=== PATIENT | female | born 1955 | race African-American/Black ===

== ENCOUNTER 2018-09-26 14:10 | Emergency (ER) | payer MEDICAID, MEDICARE, OTHER ==
[~2018-09-26] VITALS: Ht 162.6 cm; Wt 83.0 kg
[~2018-09-26 14:10] MED LIST: ACET-3161; LISI-186 PO; PRILOSEC PO; SIMV20TA2 PO; TRAM50TA PO
[2018-09-26] MEDS ORDERED: IBUPROFEN 600MG TABLET PO STA (18:08)
[2018-09-26] MEDS ORDERED: ACETAMINOPHEN 325MG TABLET PO STA (18:08)
[2018-09-26] MEDS ORDERED: ASPIRIN 81MG TABLET PO ONE (18:15)
[2018-09-26 18:58] LABS: BASOPHILS % 1.1 % (0.0-2.0); EOSINOPHILS % 2.8 % (0.0-5.0); HEMATOCRIT. 37.8 % (36.0-48.0); HEMOGLOBIN. 12.8 g/dL (12.0-16.0); LYMPHOCYTES % 44.8 % (20.0-50.0); MEAN CORPUSCULAR HEMOGLOBIN 30.4 pg (28.0-32.0); MEAN PLATELET VOLUME 7.9 fl (7.4-10.4); MONOCYTES % 5.9 % (2.0-8.0); NEUTROPHILS % 45.4 % (40.0-76.0); PLATELET 281 x1000/uL (130-400); RED CELL DISTRIBUTION WIDTH 14.4 % (11.6-14.6)
[2018-09-26 19:06] LABS: CHLORIDE 107 mEq/L (98-107)
[2018-09-26] MEDS ORDERED: LISINOPRIL 20MG TABLET PO ONE (19:15)
[2018-09-26 20:36] VITALS: BP 166/84
== END 2018-09-26 20:38 | disposition home or self-care (01) ==
LOC: ER 14:10
DX: R05 Cough (principal); R51 Headache; I10 Essential (primary) hypertension; Z88.1 Allergy status to other antibiotic agents; Z88.0 Allergy status to penicillin; Z79.899 Other long term (current) drug therapy
CPT/HCPCS: 36415; 71045; 83880; 84484; 93005; 99284

== ENCOUNTER 2020-01-05 17:19 | Emergency (ER) | payer MEDICAID, MEDICARE ==
[~2020-01-05] VITALS: Ht 162.6 cm; Wt 91.0 kg
[2020-01-05 17:24] VITALS: BP 135/93
[2020-01-05 19:36] LABS: BASOPHILS % 1.4 % (0.0-2.0); EOSINOPHILS % 2.6 % (0.0-5.0); HEMATOCRIT. 36.7 % (36.0-48.0); HEMOGLOBIN. 12.3 g/dL (12.0-16.0); LYMPHOCYTES % 37.9 % (20.0-50.0); MEAN CORPUSCULAR HEMOGLOBIN 30.6 pg (28.0-32.0); MEAN PLATELET VOLUME 7.8 fl (7.4-10.4); MONOCYTES % 4.8 % (2.0-8.0); NEUTROPHILS % 53.3 % (40.0-76.0); PLATELET 270 x1000/uL (130-400); RED BLOOD CELL COUNT 4.03 mill/uL (4.2-5.4); RED CELL DISTRIBUTION WIDTH 14.7 % (11.6-14.6)
[2020-01-05 19:42] LABS: CHLORIDE 107 mEq/L (98-107)
[2020-01-05 19:54] LABS: CLARITY URINE CLEAR (CLEAR); COLOR URINE YELLOW (YELLOW); KETONES URINE NEGATIVE (NEGATIVE); LEUKOCYTE ESTERASE URINE NEGATIVE (NEGATIVE); NITRITE URINE NEGATIVE (NEGATIVE); OCCULT BLOOD URINE NEGATIVE (NEGATIVE); PH URINE 5.5 (4.5-8.0); PROTEIN URINE NEGATIVE (NEGATIVE); SPECIFIC GRAVITY URINE 1.014 (1.005-1.030)
[2020-01-05] MEDS ORDERED: ACETAMINOPHEN 325MG TABLET PO ONE (20:00)
== END 2020-01-05 20:11 | disposition home or self-care (01) ==
LOC: ER 17:19
DX: M25.561 Pain in right knee (principal); I10 Essential (primary) hypertension; Z88.6 Allergy status to analgesic agent; Z88.3 Allergy status to other anti-infective agents; Z88.0 Allergy status to penicillin; Z90.711 Acquired absence of uterus with remaining cervical stump
CPT/HCPCS: 36415; 73560; 80053; 81003; 85025; 99284

== ENCOUNTER 2021-05-03 17:18 | Inpatient (IN) | payer MEDICARE, OTHER ==
[~2021-05-03] VITALS: Ht 162.6 cm; Wt 88.6 kg
[2021-05-03 19:31] LABS: BASOPHILS % 0.5 % (0.0-2.0); EOSINOPHILS % 0.6 % (0.0-5.0); HEMATOCRIT. 38.9 % (36.0-48.0); HEMOGLOBIN. 12.8 g/dL (12.0-16.0); LYMPHOCYTES % 20.2 % (20.0-50.0); MEAN CORPUSCULAR HEMOGLOBIN 29.5 pg (28.0-32.0); MEAN CORPUSCULAR VOLUME 89.8 fL (81.0-99.0); MEAN PLATELET VOLUME 7.2 fl (7.4-10.4); MONOCYTES % 4.4 % (2.0-8.0); NEUTROPHILS % 74.3 % (40.0-76.0); PLATELET 326 x1000/uL (130-400); RED BLOOD CELL COUNT 4.33 mill/uL (4.2-5.4); RED CELL DISTRIBUTION WIDTH 14.9 % (11.6-14.6)
[2021-05-03 19:34] LABS: CHLORIDE 107 mEq/L (98-107)
[2021-05-03 19:38] LABS: PROTHROMBIN TIME 10.9 sec (9.6-11.0)
[2021-05-03 19:39] LABS: ETHANOL BLOOD < 10 mg/dL
[2021-05-03 19:42] LABS: LDL CHOLESTEROL 175 mg/dL (5-100)
[2021-05-03] MEDS ORDERED: ASPIRIN 325MG EC TABLET PO NR (19:45)
[2021-05-03 19:57] LABS: CLARITY URINE CLEAR (CLEAR); COLOR URINE YELLOW (YELLOW); KETONES URINE NEGATIVE (NEGATIVE); LEUKOCYTE ESTERASE URINE NEGATIVE (NEGATIVE); NITRITE URINE NEGATIVE (NEGATIVE); OCCULT BLOOD URINE NEGATIVE (NEGATIVE); PROTEIN URINE TRACE (NEGATIVE); SPECIFIC GRAVITY URINE 1.039 (1.005-1.030); UROBILINOGEN URINE 0.2 E.U./dL (0.2-1.0)
[2021-05-03 20:14] LABS: *AMPHETAMINES SCREEN URINE NEGATIVE (NEGATIVE); *BARBITURATES SCREEN URINE NEGATIVE (NEGATIVE); *BENZODIAZEPINES SCREEN URINE NEGATIVE (NEGATIVE)
[2021-05-03 20:16] LABS: *COCAINE SCREEN URINE NEGATIVE (NEGATIVE); CANNABINOID URINE SCREEN NEGATIVE (NEGATIVE); METHADONE URINE SCREEN NEGATIVE (NEGATIVE); OPIATES URINE SCREEN NEGATIVE (NEGATIVE)
[2021-05-03 20:17] LABS: PHENCYCLIDINE URINE SCREEN NEGATIVE (NEGATIVE)
[2021-05-03] MEDS ORDERED: IOHEXOL-350 100 ML BOTTLE ONE (21:19)
[2021-05-03] MEDS ORDERED: CLONIDINE 0.1MG TABLET PO PRN (23:45)
[2021-05-03] MEDS ORDERED: NALOXONE HCL 0.4MG/ML VIAL IV PRN (23:45)
[2021-05-04] MEDS: HYDROCODONE/ACETAMINOPHEN 5/325MG TABLET PO PRN ×4 (00:07→17:34)
[2021-05-04] MEDS ORDERED: ACETAMINOPHEN 325MG TABLET PO PRN (08:30)
[2021-05-04] MEDS ORDERED: ONDANSETRON HCL 4MG/2ML INJ IV PRN (08:30)
[2021-05-04] MEDS: ASPIRIN 81MG TABLET PO SCH (10:53)
[2021-05-04] MEDS: NIFEDIPINE XL 60MG TAB PO SCH (10:53)
[2021-05-04] MEDS: LISINOPRIL 20MG TABLET PO SCH (10:53)
[2021-05-04 10:54] VITALS: BP 127/55
[2021-05-04] MEDS: ENOXAPARIN 40MG/0.4ML SYR SUBCUT SCH (10:54)
[2021-05-04 12:00] VITALS: BP 158/78
[2021-05-04] MEDS ORDERED: QUET50TA PO (12:45)
[2021-05-04] MEDS ORDERED: AM100 PO (12:45)
[2021-05-04] MEDS ORDERED: METH-653 MT (12:45)
[2021-05-04 16:00] VITALS: BP 149/64
[2021-05-04 20:00] VITALS: BP 143/65
[2021-05-04] MEDS: ATORVASTATIN CALCIUM 40MG TABLET PO SCH (20:32)
[2021-05-05] VITALS: BP 131/62
[2021-05-05] MEDS: HYDROCODONE/ACETAMINOPHEN 5/325MG TABLET PO PRN ×4 (00:18→21:30)
[2021-05-05 04:00] VITALS: BP 141/68
[2021-05-05 06:46] LABS: BASOPHILS % 0.7 % (0.0-2.0); EOSINOPHILS % 3.3 % (0.0-5.0); HEMATOCRIT. 37.9 % (36.0-48.0); HEMOGLOBIN. 12.9 g/dL (12.0-16.0); LYMPHOCYTES % 35.1 % (20.0-50.0); MEAN CORPUSCULAR HEMOGLOBIN 30.4 pg (28.0-32.0); MEAN CORPUSCULAR VOLUME 89.6 fL (81.0-99.0); MEAN PLATELET VOLUME 7.7 fl (7.4-10.4); MONOCYTES % 6.1 % (2.0-8.0); NEUTROPHILS % 54.8 % (40.0-76.0); PLATELET 328 x1000/uL (130-400); RED BLOOD CELL COUNT 4.23 mill/uL (4.2-5.4)
[2021-05-05 06:53] LABS: CHLORIDE 108 mEq/L (98-107)
[2021-05-05 08:00] VITALS: BP 127/67
[2021-05-05] MEDS: ASPIRIN 81MG TABLET PO SCH (09:36)
[2021-05-05] MEDS: NIFEDIPINE XL 60MG TAB PO SCH (09:37)
[2021-05-05] MEDS: LISINOPRIL 20MG TABLET PO SCH (09:37)
[2021-05-05] MEDS: ENOXAPARIN 40MG/0.4ML SYR SUBCUT SCH (09:37)
[2021-05-05 12:00] VITALS: BP 135/80
[2021-05-05 15:56] VITALS: BP 132/71
[2021-05-05 16:50] LABS: T4 FREE 0.99 ng/dL (0.76-1.46)
[2021-05-05 17:05] LABS: FOLIC ACID (FOLATE) SERUM 5.6 ng/mL (>5.38)
[2021-05-05 20:00] VITALS: BP 140/68
[2021-05-05] MEDS: ATORVASTATIN CALCIUM 40MG TABLET PO SCH (21:28)
[2021-05-06] VITALS: BP 153/75
[2021-05-06 04:00] VITALS: BP 145/71
[2021-05-06 08:00] VITALS: BP 163/81
[2021-05-06] MEDS: ENOXAPARIN 40MG/0.4ML SYR SUBCUT SCH (08:35)
[2021-05-06] MEDS: NIFEDIPINE XL 60MG TAB PO SCH (08:35)
[2021-05-06] MEDS: LISINOPRIL 20MG TABLET PO SCH (08:36)
[2021-05-06] MEDS ORDERED: CLOPIDOGREL 75MG TABLET PO SCH (09:00)
[2021-05-06 12:00] VITALS: BP 134/52
[2021-05-06 16:00] VITALS: BP 163/80
[2021-05-06] MEDS: HYDROCODONE/ACETAMINOPHEN 5/325MG TABLET PO PRN (17:27)
[2021-05-06] MEDS ORDERED: LIP40 MT (18:22)
[2021-05-06 18:46] VITALS: BP 153/80
== END 2021-05-06 19:51 | disposition home or self-care (01) | DRG 69 ==
LOC: ER 17:18 → MICUSO 05-04 03:50 → 7EST 05-04 08:58
PROVIDERS: ADMIT Internal Medicine; ATTEND Internal Medicine
DX: G45.9 Transient cerebral ischemic attack, unspecified (principal); N17.9 Acute kidney failure, unspecified; R57.9 Shock, unspecified; E11.9 Type 2 diabetes mellitus without complications; F17.200 Nicotine dependence, unspecified, uncomplicated; I10 Essential (primary) hypertension; E78.5 Hyperlipidemia, unspecified; E66.9 Obesity, unspecified; E78.00 Pure hypercholesterolemia, unspecified; I66.13 Occlusion and stenosis of bilateral anterior cerebral arteries; I66.8 Occlusion and stenosis of other cerebral arteries; R26.89 Other abnormalities of gait and mobility; Z88.1 Allergy status to other antibiotic agents; Z88.0 Allergy status to penicillin; Z79.899 Other long term (current) drug therapy; Z71.3 Dietary counseling and surveillance; Z68.33 Body mass index [BMI] 33.0-33.9, adult; Z86.73 Personal history of transient ischemic attack (TIA), and cerebral infarction without residual deficits
CPT/HCPCS: 36415; 70496; 70498; 70551; 71045; 80048; 80053; 80061; 80305; 80320; 81003; 82607; 82746; 83036; 83721; 84439; 84443; 84481; 84484; 85025; 93005; 93306; 97116; 97162; 97166; 97530; 97535; 99291; J1650; Q9967; G0480

== ENCOUNTER 2023-10-19 17:07 | Emergency (ER) | payer OTHER ==
[~2023-10-19] VITALS: Ht 162.6 cm; Wt 90.0 kg
[~2023-10-19 17:07] MED LIST changes: +AM100 PO; +LIP40 MT; +METH-653 MT; +QUET50TA PO; +SIMV-343 PO; -SIMV20TA2 PO
[2023-10-19 17:15] VITALS: O2SAT 98
[2023-10-19] MEDS ORDERED: MECLIZINE 25MG TABLET PO ONE (17:30)
[2023-10-19 18:07] LABS: BASOPHILS % 0.6 % (0.0-2.0); EOSINOPHILS % 7.8 % (0.0-5.0); HEMATOCRIT. 29.5 % (36.0-48.0); HEMOGLOBIN. 9.8 g/dL (12.0-16.0); LYMPHOCYTES % 23.6 % (20.0-50.0); MEAN CORPUSCULAR HEMOGLOBIN 30.9 pg (28.0-32.0); MEAN CORPUSCULAR HGB CONC 33.1 g/dL (31.0-37.0); MEAN CORPUSCULAR VOLUME 93.2 fL (81.0-99.0); MEAN PLATELET VOLUME 7.5 fl (7.4-10.4); MONOCYTES % 5.7 % (2.0-8.0); NEUTROPHILS % 62.3 % (40.0-76.0); PLATELET 288 x1000/uL (130-400); RED BLOOD CELL COUNT 3.16 mill/uL (4.2-5.4); RED CELL DISTRIBUTION WIDTH 14.3 % (11.6-14.6); WHITE BLOOD COUNT 5.9 x1000/uL (4.5-11.0)
[2023-10-19 18:08] LABS: CHLORIDE 110 mEq/L (98-107); POTASSIUM 4.7 mEq/L (3.5-5.1); SODIUM 140 mEq/L (136-145)
[2023-10-19 18:09] LABS: CALCIUM 9.6 mg/dL (8.7-10.4); CARBON DIOXIDE 24 mEq/L (21-32)
[2023-10-19 18:14] LABS: CREATININE 2.2 mg/dL (0.6-1.0); GLUCOSE 101 mg/dL (70-105); UREA NITROGEN BLOOD 21 mg/dL (9-23)
[2023-10-19] MEDS: SODIUM CHLORIDE 0.9% 1,000 ML IV ONE (18:15)
[2023-10-19 18:17] LABS: PROTHROMBIN TIME 10.9 sec (9.6-11.0); TROPONIN I HIGH SENSITIVITY 27 ng/L (3.0-34)
[2023-10-19 18:35] VITALS: TEMP 97.7
[2023-10-19 21:09] VITALS: BP 148/66; PULSE 84; RESP 16
== END 2023-10-19 21:31 | disposition home or self-care (01) ==
LOC: ER 17:07
DX: A08.4 Viral intestinal infection, unspecified (principal); N17.9 Acute kidney failure, unspecified; E86.0 Dehydration; I10 Essential (primary) hypertension; Z86.73 Personal history of transient ischemic attack (TIA), and cerebral infarction without residual deficits
CPT/HCPCS: 99285; 96360; 70450; 71045; 80048; 83880; 85025; 85610; 84484; 36415; 93005; J7030; J8597